=== PATIENT | female | born 2000 | race Caucasian/White ===

== ENCOUNTER 2021-10-09 21:44 | Emergency (ER) | payer BC, OTHER ==
--- OUTSIDE RECORDS SUMMARY | 2021-10-09 21:47 | XMS REPORT | Continuity of Care Document ---
:2000 Author Organization [facility] t Address [address] [place] [address] Dr. Aburto [address] [place] [address] Care Team Providers Name Role Phone MYNOR Attending Clinician Unavailable Yaya Attending Clinician [phone] VINCE Attending Clinician Unavailable Paty Oakley Attending Clinician [phone] MYNOR Admitting Clinician Unavailable VINCE Admitting Clinician Unavailable Payers Payer Name Policy Type Policy Number Effective Date Expiration Date S chris [facility] [id number] 2018 BENEFIT SERVICES 00:00:00 (PPO) Problems Condition Condition Condition Status Onset Resolution Last Treating Co mments Source Name Details Category Date Date Treatment Clinician Date Uses Uses Problem Active [facility] contrace[facility] contracept Laquita kes - ion [facility] Encounter Encounter Problem Active [facility] - surveillan surveillan Me moria ce of ce of l contracept contracept Ou tpati alok pills alok pills ent Clinics Screen for Screen for Problem Active [facility] STD STD [facility] - (sexually (sexually Escobar francisco transmitte transmitte l d disease) d disease) Ou tpati ent Clinics Well woman Well woman Problem Active [facility] exam with exam with Luke s - routine routine Memoria gynecologi gynecologi l gisela exam gisela exam Outpat i ent Clinics Allergies, Adverse Reactions, Alerts Allergy Allergy Status Severity Reaction(s) Onset Inactive Treating Comm ents Source Name Type Date Date Clinician penicill Adverse Active Info Not [facility] Reaction Available [facility] Medications Ordered Filled Start Stop Current Ordering Indication Dosage Frequency Signature Comments Components Source Medication Medication Date Date Medication? Clinician (SIG) Name Name Tyrell Santillan 0 2019- No John [address] [facility] 03-19-20 Rekhi [facility] - 00:00: 00:00 Memoria 00 :00 l Outpati ent Clinics Procedures This patient has no known procedures. Encounters Start End Encounter Admission Attending Care Care Encounter Source Date/Time Date/Time Type Type Clinicians Facility Department ID 2021-07-28 2021-07-28 Outpatient YAYA_S [facility] [id number] [place] 05:53:00 05:53:00 [facility] 2021-01-30 2021-01-30 Outpatient YAYA_S [facility] [id number] [place] 01:01:00 01:01:00 [id number] [facility] 2020-12-28 2020-12-28 Outpatient YAYA_S [facility] [id number] [place] 12:31:00 12:31:00 524 [facility] 2020-12-28 2020-12-28 [id number]:00:00 00:00:00 Renetta [id number] 2020-11-25 2020-11-25 Outpatient [facility] [id number] [place] 12:30:00 12:30:00 _L 421 [facility] 2020-11-25 2020-11-25 Outpatient [facility] [id number] 00:00:00 00:00:00 , Fidelia [id number] Paty [id number] 2020-11-18 2020-11-18 Outpatient [facility] 378 [place] 12:26:00 12:26:00 _L 414 [facility] 2020-11-18 2020-11-18 Outpatient [facility] [id number] 00:00:00 00:00:00 , Fidelia [id number] Paty [id number] 2020-11-12 2020-11-12 Outpatient [facility] 378 [place] 05:33:00 05:33:00 _L 408 [facility] 2020-11-12 2020-11-12 [facility] [id number] 00:00:00 00:00:00 , Fidelia [id number] Paty [id number] 2019-03-19 2019-03-19 [facility] [id number] [facility] 08:50:00 08:50:00 t [facility] 2019-03-14 2019-03-14 [facility] [id number] 09:30:00 09:30:00 t [facility] 2018-01-25 2018-01-25 [facility] [id number] 16:04:00 16:04:00 t [facility] 2018-01-25 2018-01-25 [facility] [id number] [address] 15:24:00 15:24:00 t [facility] 2018-01-23 2018-01-23 [facility] [id number] 10:30:00 10:30:00 t [facility] Results This patient has no known results.
[2021-10-09] MEDS ORDERED: METHYLPREDNISOLONE 125 MG INJ ONE (23:36)
[2021-10-09] MEDS ORDERED: ACETAMINOPHEN 500 MG TAB ONE (23:36)
[2021-10-09] MEDS ORDERED: NA CHLORIDE 0.9% 1,000 ML ONE (23:37)
[2021-10-09] MEDS ORDERED: FAMOTIDINE 20 MG/2 ML VIAL IV ONE (23:37)
[2021-10-09 23:59] LABS: Hematocrit 42.2 % (36.0-45.0); Lymphocytes % 21.2 % (15.3-44.8); MPV 11.2 fL (7.6-11.3); RBC Red Blood Cell Count 4.64 M/uL (3.86-4.86)
[2021-10-10 00:06] LABS: Protime INR 1.09
[2021-10-10 00:16] LABS: ALT/SGPT 26 U/L (12-78); AST/SGOT 14 U/L (15-37); Albumin 3.7 g/dL (3.4-5.0); Alkaline Phosphatase 66 U/L (45-117); BUN Blood Urea Nitrogen 10 mg/dL (7-18); Bicarbonate 30 mmol/L (21-32); Bilirubin Direct 0.2 mg/dL (0-0.2); Bilirubin Total 0.6 mg/dL (0.2-1.0); Glucose Level 95 mg/dL (74-106); Potassium 3.4 mmol/L (3.5-5.1); Sodium Level 136 mmol/L (136-145)
[2021-10-10] MEDS ORDERED: CIPROFLOXACIN HCL 500 MG TAB ONE (01:01)
[2021-10-10] MEDS ORDERED: metroNIDAZOLE 500 MG TABLET ONE (01:01)
--- NOTE | 2021-10-10 02:25 | ER ---
Nurse's Notes [facility] Name: Berto Zaldivar Age: 21 yrs Sex: Female : 2000 Arrival Date: 10/09/2021 Time: 21:49 Bed 15 Private MD: Diagnosis: Allergy status to unspecified drugs, medicaments and biological substances status;Dental Abscess Presentation: 10/09 22:06 Chief complaint:. Chief complaint: Patient states: "I have an infection in my tooth. I tw5 went to the dentist yesterday and got some antibiotics and pain medication. I think I may be having an allergic reaction to the antibiotics. I was told that I should be feeling better by now but it is only getting worse.". Coronavirus screen: Vaccine status: Patient reports receiving the 2nd dose of the covid vaccine. Moderna. Ebola Screen: Patient negative for fever greater than or equal to 101.5 degrees Fahrenheit, and additional compatible Ebola Virus Disease symptoms Patient denies exposure to infectious person. Patient denies travel to an Ebola-affected area in the 21 days before illness onset. Initial Sepsis Screen: Does the patient meet any 2 criteria? HR > 90 bpm. Does the patient have a suspected source of infection? No. Patient's initial sepsis screen is negative. Risk Assessment: Do you want to hurt yourself or someone else? Patient reports no desire to harm self or others. Onset of symptoms is unknown. 22:06 Method Of Arrival: Ambulatory tw5 22:06 Acuity: NAYELI 4 tw5 Triage Assessment: 22:08 General: Appears uncomfortable, Behavior is calm, cooperative, appropriate for age. tw5 Pain: Complains of pain in left jaw Pain currently is 7 out of 10 on a pain scale. EENT: Reports pain in left jaw. 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 - Social history:: Smoking status: Patient denies any tobacco usage or history of. Screenin:18 Abuse screen: Denies threats or abuse. Nutritional screening: No deficits noted. sv1 Tuberculosis screening: No symptoms or risk factors identified. Never had TB. Risk factors: None. Fall Risk None identified. Vital Signs: 22:06 BP 126 / 88; Pulse 98; Resp 18; Temp 99.5(O); Pulse Ox 98% on R/A; Weight 68.04 kg; tw5 Height 5 ft. 5 in. (165.10 cm); Pain 8/10; 22:18 BP 126 / 87 LA Supine (auto/reg); Pulse 97; Resp 18 S; Temp 100.5(O); Pulse Ox 99% ; sv1 Pain 8/10; 10/10 01:00 BP 109 / 66 LA Supine (auto/reg); Pulse 79 MON; Resp 17 S; Temp 98.8(O); Pulse Ox 100% sv1 on R/A; 02:43 BP 107 / 81 RA Sitting (auto/reg); Pulse 82 MON; Resp 16 S; Temp 98.7(O); Pulse Ox 97% sv1 on R/A; Pain 0/10; 10/09 22:06 Body Mass Index 24.96 (68.04 kg, 165.10 cm) tw5 ED Course: 10/09 21:49 Patient arrived in ED. es 22:08 Triage completed. tw5 22:08 Arm band placed on left wrist. tw5 22:11 Tunde Quezada MD is Attending Physician. mh7 22:16 Kiko Baires, RN is Primary Nurse. sv1 22:18 Patient has correct armband on for positive identification. Bed in low position. Call sv1 light in reach. Side rails up X2. Adult w/ patient. 23:50 CT Maxillofacial W/cont In Process Unspecified. EDMS 23:55 Test, Serum Sent. sv1 10/10 02:21 Abram Resendiz MD is Referral Physician. 7 02:22 Paulino Fields DDS is Referral Physician. 7 02:43 No provider procedures requiring assistance completed. IV discontinued. sv1 Administered Medications: 10/09 23:55 Drug: Tylenol 1000 mg Route: PO; sv1 10/10 01:08 Follow up: Response: No adverse reaction; Pain is decreased sv1 02:17 Follow up: Response: No adverse reaction sv1 00:11 Drug: Pepcid (famotidine) 20 mg Route: IVP; Site: left antecubital; sv1 01:09 Follow up: Response: No adverse reaction sv1 00:11 Drug: SOLU-Medrol (methylPrednisoLONE) 125 mg Route: IVP; Site: left antecubital; sv1 01:08 Follow up: Response: No adverse reaction sv1 00:11 Drug: NS 0.9% 1000 ml Route: IV; Rate: 1000 ml; Site: left antecubital; sv1 01:06 Follow up: IV Status: Completed infusion; IV converted to saline lock sv1 01:07 Follow up: Response: No adverse reaction sv1 01:08 Drug: Cipro (ciprofloxacin) 500 mg Route: PO; sv1 02:16 Follow up: Response: No adverse reaction sv1 01:30 Drug: Flagyl (metroNIDAZOLE) 500 mg Route: PO; sv1 02:17 Follow up: Response: No adverse reaction sv1 Outcome: 02:25 Discharge ordered by . calista 02:43 Discharged to home ambulatory, with family. sv1 02:43 Condition: improved 02:48 Discharge instructions given to patient, family. sv1 02:48 Patient left the ED. sv1 Signatures: Dispatcher [employer] Alma Delia Chester Maurice, MD MD [facility] Arabella Mcleod 5 Kiko Baires RN RN sv1
--- NOTE | 2021-10-10 02:25 | EDPHYS ---
Physician Documentation [facility] Name: Berto Zaldivar Age: 21 yrs Sex: Female : 2000 Arrival Date: 10/09/2021 Time: 21:49 Bed 15 Private MD: ED Physician Tunde Quezada HPI: 10/09 22:58 This 21 yrs old Female presents to ER via Ambulatory with complaints of Toothache, mh7 Allergic Reaction. 22:58 The patient presents with pain, swelling. The problem is located in the left jaw. mh7 Onset: The symptoms/episode began/occurred 2 day(s) ago. Duration: The symptoms are continuous, and are unchanged since they started. Modifying factors: The symptoms are alleviated by nothing, the symptoms are aggravated by chewing, cold fluids. Associated signs and symptoms: Pertinent negatives: anorexia, chills, dysphagia, fever, inability to eat, nausea, redness in area, vomiting. Severity of symptoms: At their worst the symptoms were moderate, last night, in the emergency department the symptoms are unchanged. States that she saw dentist yesterday who started her on antibiotics and pain medication. She states that she started having itching all over and rash on her back.. 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 - Social history:: Smoking status: Patient denies any tobacco usage or history of. ROS: 22:58 Constitutional: Negative for fever, chills, and weight loss, Eyes: Negative for injury, mh7 pain, redness, and discharge, Neck: Negative for injury, pain, and swelling, Cardiovascular: Negative for chest pain, palpitations, and edema, Respiratory: Negative for shortness of breath, cough, wheezing, and pleuritic chest pain, Abdomen/GI: Negative for abdominal pain, nausea, vomiting, diarrhea, and constipation, Back: Negative for injury and pain, : Negative for injury, bleeding, discharge, and swelling, MS/Extremity: Negative for injury and deformity, Neuro: Negative for headache, weakness, numbness, tingling, and seizure, Psych: Negative for depression, anxiety, suicide ideation, homicidal ideation, and hallucinations, Endocrine: Negative for neck swelling, polydipsia, polyuria, polyphagia, and marked weight changes, Hematologic/Lymphatic: Negative for swollen nodes, abnormal bleeding, and unusual bruising. Exam: 22:58 Constitutional: This is a well developed, well nourished patient who is awake, alert, mh7 and in no acute distress. Eyes: Pupils equal round and reactive to light, extra-ocular motions intact. Lids and lashes normal. Conjunctiva and sclera are non-icteric and not injected. Cornea within normal limits. Periorbital areas with no swelling, redness, or edema. Neck: Trachea midline, no thyromegaly or masses palpated, and no cervical lymphadenopathy. Supple, full range of motion without nuchal rigidity, or vertebral point tenderness. No Meningismus. Chest/axilla: Normal chest wall appearance and motion. Nontender with no deformity. No lesions are appreciated. Cardiovascular: Regular rate and rhythm with a normal S1 and S2. No gallops, murmurs, or rubs. Normal PMI, no JVD. No pulse deficits. Respiratory: Lungs have equal breath sounds bilaterally, clear to auscultation and percussion. No rales, rhonchi or wheezes noted. No increased work of breathing, no retractions or nasal flaring. Abdomen/GI: Soft, non-tender, with normal bowel sounds. No distension or tympany. No guarding or rebound. No evidence of tenderness throughout. Back: No spinal tenderness. No costovertebral tenderness. Full range of motion. MS/ Extremity: Pulses equal, no cyanosis. Neurovascular intact. Full, normal range of motion. Neuro: Awake and alert, GCS 15, oriented to person, place, time, and situation. Cranial nerves II-XII grossly intact. Motor strength 5/5 in all extremities. Sensory grossly intact. Cerebellar exam normal. Normal gait. Psych: Awake, alert, with orientation to person, place and time. Behavior, mood, and affect are within normal limits. 22:58 Head/face: Noted is swelling, that is mild, of the left jaw, tenderness, that is mild, mh7 of the left jaw. 22:58 ENT: External ear(s): are unremarkable, Ear canal(s): are normal, clear, TM's: are mh7 normal, Nose: is normal, Mouth: is normal, Posterior pharynx: is normal, airway is patent, Dental exam: abscess, is not appreciated, cellulitis, is not appreciated, dental caries, that is mild, specifically in the lower left first molar (#19) and lower left second bicuspid (#20), fractured teeth are noted, not appreciated, gum swelling, that is mild, specifically in the lower left first molar (#19) and lower left second bicuspid (#20), malocclusion, is not appreciated, missing teeth, not appreciated, Voice: is normal. 22:58 Skin: rash a mild rash is noted, urticaria, on the back. Vital Signs: 22:06 BP 126 / 88; Pulse 98; Resp 18; Temp 99.5(O); Pulse Ox 98% on R/A; Weight 68.04 kg; tw5 Height 5 ft. 5 in. (165.10 cm); Pain 8/10; 22:18 BP 126 / 87 LA Supine (auto/reg); Pulse 97; Resp 18 S; Temp 100.5(O); Pulse Ox 99% ; sv1 Pain 8/10; 03/06 01:00 BP 109 / 66 LA Supine (auto/reg); Pulse 79 MON; Resp 17 S; Temp 98.8(O); Pulse Ox 100% sv1 on R/A; 02:43 BP 107 / 81 RA Sitting (auto/reg); Pulse 82 MON; Resp 16 S; Temp 98.7(O); Pulse Ox 97% sv1 on R/A; Pain 0/10; 03/05 22:06 Body Mass Index 24.96 (68.04 kg, 165.10 cm) tw5 MDM: 02:20 Differential diagnosis: dental caries, gingivitis, dental abscess, pericoronitis, mh7 aphthous ulcers, acute necrotizing ulcerative gingivitis, gingivostomatitis. Data reviewed: vital signs, nurses notes, lab test result(s), CBC, electrolytes, radiologic studies, CT scan. Data interpreted: Pulse oximetry: on room air is 100 %. Interpretation: normal. Counseling: I had a detailed discussion with the patient and/or guardian regarding: the historical points, exam findings, and any diagnostic results supporting the discharge/admit diagnosis, lab results, radiology results, the need for outpatient follow up, an allergy/software specialist, a dentist, to return to the emergency department if symptoms worsen or persist or if there are any questions or concerns that arise at home. Response to treatment: the patient's symptoms have resolved after treatment, the patient's blood pressure is in an acceptable range, mental status has returned to baseline, the patient no longer shows bradycardia, the patient is not short of breath, the patient is not tachycardic, the patient's pain is gone, the patient's temperature has normalized. 02:25 Patient medically screened. [facility] 10/09 22:49 Order name: CBC with Diff; Complete Time: 00:17 [facility] 10/09 22:49 Order name: Basic Metabolic Panel; Complete Time: 00:17 [facility] 10/09 22:49 Order name: LFT's; Complete Time: 00:17 [facility] 10/09 22:49 Order name: Protime (+inr); Complete Time: 00:17 [facility] 10/09 22:49 Order name: Ptt, Activated; Complete Time: 00:17 [facility] 10/09 22:49 Order name: Test, Serum; Complete Time: 00:17 [facility] 10/09 22:49 Order name: Saline Lock; Complete Time: 23:15 [facility] 10/09 22:49 Order name: CT Maxillofacial W/cont [facility] Administered Medications: 10/09 23:55 Drug: Tylenol 1000 mg Route: PO; sv1 03 01:08 Follow up: Response: No adverse reaction; Pain is decreased sv1 02:17 Follow up: Response: No adverse reaction sv1 00:11 Drug: Pepcid (famotidine) 20 mg Route: IVP; Site: left antecubital; sv1 01:09 Follow up: Response: No adverse reaction sv1 00:11 Drug: SOLU-Medrol (methylPrednisoLONE) 125 mg Route: IVP; Site: left antecubital; sv1 01:08 Follow up: Response: No adverse reaction sv1 00:11 Drug: NS 0.9% 1000 ml Route: IV; Rate: 1000 ml; Site: left antecubital; sv1 01:06 Follow up: IV Status: Completed infusion; IV converted to saline lock sv1 01:07 Follow up: Response: No adverse reaction sv1 01:08 Drug: Cipro (ciprofloxacin) 500 mg Route: PO; sv1 02:16 Follow up: Response: No adverse reaction sv1 01:30 Drug: Flagyl (metroNIDAZOLE) 500 mg Route: PO; sv1 02:17 Follow up: Response: No adverse reaction sv1 Disposition Summary: 10/10/21 02:25 Discharge Ordered Location: Home [facility] Problem: new [facility] Symptoms: have improved [facility] Condition: Stable [facility] Diagnosis - Allergy status to unspecified drugs, medicaments and biological substances status [facility] - Dental Abscess [facility] Followup: [facility] - With: Private Physician - When: 1 - 2 days - Reason: Worsening of condition, Recheck today's complaints, Continuance of care, Re-evaluation by your physician Followup: [facility] - With: Abram Resendiz MD - When: 1 - 2 days - Reason: Worsening of condition, Recheck today's complaints Followup: [facility] - With: Paulino Fields DDS - When: 1 - 2 days - Reason: Worsening of condition, Recheck today's complaints Discharge Instructions: - Discharge Summary Sheet [facility] - Allergies, Adult, [id number] [facility] - Dental Abscess, [id number] [facility] Forms: - Medication Reconciliation Form [facility] - Thank You Letter [facility] - Antibiotic Education [facility] - Prescription Opioid Use [facility] Prescriptions: - Benadryl 25 mg Oral Capsule - take 1 capsule by ORAL route every 6 hours As needed; 30 tablet; Refills: 0, [facility] Product Selection Permitted - Flagyl 500 mg Oral Tablet - take 1 tablet by ORAL route every 12 hours for 7 days; 14 tablet; Refills: 0, [facility] Product Selection Permitted - Ibuprofen 600 mg Oral Tablet - take 1 tablet by ORAL route every 8 hours As needed take with food; 15 tablet; [facility] Refills: 0, Product Selection Permitted - Pepcid 20 mg Oral Tablet - take 1 tablet by ORAL route every 12 hours for 5 days; 10 tablet; Refills: 0, [facility] Product Selection Permitted - Cipro 500 mg Oral Tablet - take 1 tablet by ORAL route every 12 hours for 7 days; 14 tablet; Refills: 0, [facility] Product Selection Permitted - Prednisone 20 mg Oral Tablet - take 2 tablets by ORAL route once daily for 5 days; 10 tablet; Refills: 0, 7 Product Selection Permitted Signatures: Dispatcher [employer] Tunde Reynoso MD MD mh7 [facility] 5 Kiko Baires RN RN sv1
[2021-10-10 02:57] VITALS: BP 107/81; TEMP 98.7; O2SAT 97
--- NOTE | 2021-10-11 13:00 | RAD REPORT ---
EXAM DESCRIPTION: CT - Maxillofacial W/Cont - 10/10/2021 6:25 am CLINICAL HISTORY: Facial pain;Swelling COMPARISON: None. TECHNIQUE: CT MAXILLOFACIAL WITH IV CONTRAST on 10/09/2021 10:49 PM PATHOLOGY SPECIALIST This exam was performed according to our departmental dose-optimization program, which includes autom ated exposure control, adjustment of the mA and/or kV according to patient size and/or use of iterati ve reconstruction technique. FINDINGS: There is no acute fracture. The paranasal sinuses are clear. Orbits and globes are unremar kable. Mastoid air cells are clear. Temporomandibular joints are intact. There is moderate soft tissu e swelling overlying the left mandible. There is a tiny abscess adjacent to the anterolateral left ma ndible measuring 7 x 3 mm. IMPRESSION: Tiny left perimandibular abscess with associated soft tissue swelling. Electronically signed by: Joon Hull MD 10/09/2021 11:54 PM PATHOLOGY SPECIALIST Due to temporary technical issues with the PACS/Fluency reporting system, reports are being signed by the in house radiologist without review as a courtesy to ensure prompt reporting. The interpreting r adiologist is fully responsible for the content of the report.
== END 2021-10-10 02:48 | disposition home or self-care (01) ==
LOC: ER 21:44
DX: R21 Rash and other nonspecific skin eruption (principal); K04.7 Periapical abscess without sinus; Z88.9 Allergy status to unspecified drugs, medicaments and biological substances
CPT/HCPCS: 96361; 85025; 80048; 36415; 84703; 85610; 80076; 85730; 70487; 96375; 96374; 99284; Q9967; J7030; J2930